=== PATIENT | female | born 2000 | race Caucasian/White ===

== ENCOUNTER 2024-05-29 13:39 | Outpatient (CLI) | payer OTHER, SELFPAY | END 2024-05-29 13:40 | disposition home or self-care (01) | PROVIDERS: Visit Provider Advanced Practice Midwife | DX: Z34.92 Encounter for supervision of normal pregnancy, unspecified, second trimester (principal); O20.9 Hemorrhage in early pregnancy, unspecified; O34.81 Maternal care for other abnormalities of pelvic organs, first trimester; N83.202 Unspecified ovarian cyst, left side; Z3A.10 10 weeks gestation of pregnancy | CPT/HCPCS: 76817; 83021; 86592; 86703; 86704; 86706; 86762; 86787; 86803; 86850; 86900; 86901; 87086; 87340; 87491; 87591 ==

== ENCOUNTER 2024-05-29 15:53 | Outpatient (CLI) | payer OTHER, SELFPAY ==
[2024-05-29 21:09] LABS: Chlamydia DNA Amplified* NOT DETECTED (No Detected); GC DNA Amplified* NOT DETECTED (No Detected)
== END 2024-05-29 15:54 | disposition home or self-care (01) ==
PROVIDERS: Visit Provider Advanced Practice Midwife
DX: Z34.81 Encounter for supervision of other normal pregnancy, first trimester (principal)
CPT/HCPCS: 83020; 83021; 85660; 86592; 86703; 86704; 86706; 86762; 86787; 86803; 86850; 86900; 86901; 87086; 87340; 87491; 87591

== ENCOUNTER 2024-08-01 13:41 | Outpatient (CLI) | payer OTHER, SELFPAY ==
--- NOTE | 2024-08-01 14:00 | CRLHL7_ITS ---
For Patients: As a result of the 21st Century Cures Act, medical imaging exams and procedure reports are released immediately into your electronic medical record. You may view this report before your referring provider. If you have questions, please contact your health care provider. OB ULTRASOUND FLORY by US: 12/24/2024. GA: 19 w, 2 d. INDICATION: screen. TECHNIQUE: Real time taylor scale imaging of the fetus was performed. Evaluate anatomy. Transabdominal imaging performed. position: Vertex. Cervix: Visualized. Technique: Transabdominal. Length of closed cervix: 3.2 cm. Placenta/cord: Posterior. Placenta tip to internal OS: 4.8 cm. Umbilical Cord: 3-vessel cord. Placenta insertion: Not visualized. Amniotic Fluid: 3.7 cm SDP (greater than/equal to: 2- less than 8 cm). SURVEY: Observed Structures. Calvarium/Spine: Cerebellum: 1.9 cm, 19 w 5 d. Cisterna Magna: 5.2 mm. Nuchal Fold: 4.1 mm. Lateral Ventricle: 5.8 mm. CSP: See worksheet comment. Midline Falx: Yes. Choroid Plexus: Yes. Spine: Yes. Abdomen: Stomach: Yes. Abd Cord Insertion: Yes. Urinary Bladder: Yes. Kidneys: (Not indicated on worksheet.) Diaphragm: Yes. Face: Nose/lips: Yes. Orbital view: See worksheet comment. Profile: Yes. Limbs: Upper Extremities: Yes. Lower Extremities: Yes. Hands: Yes. Feet: Yes. Vascular: 4-Chamber Heart: Yes. LVOT: Yes. RVOT: Yes. 3VV: Yes. 3VTV: Yes. BPD: 4.6 cm. 19 w, 5 d, 72 percent. HC: 16.0 cm. 18 w, 6 d, 23 percent. AC: 13.4 cm. 18 w, 6 d, 31 percent. FL: 2.7 cm. 18 w, 1 d, 10 percent. FL/AC ratio: 20.01 percent. HC/AC ratio: 1.20. heart rate: 142 bpm. age by this US: 19 w, 0 d. FLORY by this US: 12/26/2024. EFW: 248 g. Weight: 9 oz. Percentile by FLORY: 14 percent. IMPRESSION: 1. Due to position, the cervical spine was difficult to completely visualize. Also, the head measurements were difficult to obtain. The placental cord insertion, kidneys and facial structures are not well visualized. The remainder of the anatomic survey is normal. Short-term follow-up is recommended. 2. Concordance of clinical and sonographic dating. Miguel Angel García M.D. Diagnostic Radiologist [email or web address] DELFINO/Dictated by: Miguel Angel García MD @ 08/01/2024 8:17:00 PM (Electronically Signed)
== END 2024-08-01 13:42 | disposition home or self-care (01) ==
LOC: US 13:42
PROVIDERS: Visit Provider Advanced Practice Midwife
DX: Z34.92 Encounter for supervision of normal pregnancy, unspecified, second trimester (principal); Z3A.19 19 weeks gestation of pregnancy
CPT/HCPCS: 76805

== ENCOUNTER 2024-08-14 11:01 | Outpatient (CLI) | payer OTHER, SELFPAY ==
--- NOTE | 2024-08-14 11:15 | CRLHL7_ITS ---
For Patients: As a result of the Century Cures Act, medical imaging exams and procedure reports are released immediately into your electronic medical record. You may view this report before your referring provider. If you have questions, please contact your health care provider. OB ULTRASOUND SURVEY FLORY by LMP or FLORY by US: 12/24/2024. GA: 21 w, 1 d. INDICATION: Follow-up missing anatomy views. TECHNIQUE: Real time grayscale imaging of the fetus was performed. Evaluate anatomy. Transabdominal. Cervix: Visualized. Measurement 3.7 cm. position: Vertex. Amniotic Fluid: 5.5 cm SDP. SURVEY: Observed Structures. Calvarium/Spine: CSP: Yes. Spine: Yes. Abdomen: Kidneys: Yes. Face: Nose/lips: Yes. Orbital view: Yes. Profile: Yes. IMPRESSION: 1. Normal cavum septum pellucidum, spine, kidneys, and face. 2. Placental cord insertion 2.1 cm from the placental edge. 3. Small incidental placental lakes. Miguel Angel García M.D. Diagnostic Radiologist [email or web address] DANTE/[email or web address] blanco/Dictated by: Miguel Angel García MD @ 08/14/2024 12:05:00 PM (Electronically Signed)
== END 2024-08-14 11:02 | disposition home or self-care (01) ==
LOC: US 11:01
PROVIDERS: Visit Provider Midwife
DX: O35.8XX0 Maternal care for other (suspected) fetal abnormality and damage, not applicable or unspecified (principal); Z3A.21 21 weeks gestation of pregnancy
CPT/HCPCS: 76816

== ENCOUNTER 2024-09-07 14:40 | Outpatient (CLI) | payer OTHER, SELFPAY | END 2024-09-07 14:41 | disposition home or self-care (01) | LOC: NFLDREF 09-08 01:33 | PROVIDERS: Visit Provider Advanced Practice Midwife | DX: O26.899 Other specified pregnancy related conditions, unspecified trimester (principal); R30.9 Painful micturition, unspecified | CPT/HCPCS: 87086 ==

== ENCOUNTER 2024-10-03 15:25 | Outpatient (CLI) | payer OTHER, SELFPAY | END 2024-10-03 15:26 | disposition home or self-care (01) | PROVIDERS: Visit Provider Midwife | DX: Z34.93 Encounter for supervision of normal pregnancy, unspecified, third trimester (principal); Z67.91 Unspecified blood type, Rh negative; Z3A.28 28 weeks gestation of pregnancy | CPT/HCPCS: 86592; 86850; J2791 ==

== ENCOUNTER 2024-11-28 08:41 | Outpatient (CLI) | payer OTHER, SELFPAY ==
[2024-11-28 11:22] LABS: Bacterial Vaginosis* Negative (Negative); Candida glab/krus NOT DETECTED (No Detected)
== END 2024-11-28 08:42 | disposition home or self-care (01) ==
LOC: NFLDREF 08:42
PROVIDERS: Visit Provider Midwife
DX: R30.0 Dysuria (principal)
CPT/HCPCS: 81513; 87081; 87086; 87481; 87653; 87661

== ENCOUNTER 2024-12-12 10:30 | Outpatient (CLI) | payer OTHER, SELFPAY ==
--- NOTE | 2024-12-12 10:45 | CRLHL7_ITS ---
For Patients: As a result of the Century Cures Act, medical imaging exams and procedure reports are released immediately into your electronic medical record. You may view this report before your referring provider. If you have questions, please contact your health care provider. OB ULTRASOUND LMP: Irregular cycles. FLORY by US: 12/24/2024. GA: 38 w, 2 d. Single. Comparison: 08/14/2024, 08/01/2024, . INDICATION: Growth (size less than dates). TECHNIQUE: Real time grayscale imaging of the fetus was performed. Transabdominal. CERVIX: Not visualized. POSITIONING: Vertex. AMNIOTIC FLUID: 3.8 cm. SDP (N: greater than 2 x 1 cm) BIOPHYSICAL PROFILE: 2: Gross body movements 2: tone 2: Respiratory activity 2: Amniotic fluid SDP (N: greater than 2 x 1 cm) 8/8: Total score PLACENTA: Technique: Transabdominal. PLACENTA POSITION: Posterior. DOPPLER: heart rate: 136 bpm. Umbilical artery: 3.0 S/D. Greater than 34 w = less than 3.5. BIOMETRY: BPD: 8.9 cm. 35 w, 6 d, 14.8 percent. HC: 32.0 cm. 36 w, 0 d, <3 percent. AC: 31.8 cm. 35 w, 5 d, 7.7 percent. FL: 6.8 cm. 34 w, 5 d, <3 percent. FL/AC ratio: 21.2 percent. HC/AC ratio: 1.0. EFW: 2696 g. Weight: 5 lbs, 15 oz. age by this US: 35 w, 4 d. FLORY by this US: 01/12/2025. Percentile by FLORY: 7.6 percent. Comments: New onset IUGR. IMPRESSION: 1. Sonographic gestational age 35 weeks 4 days and sonographic due date 01/12/2025. Sonographic age is 19 days behind the clinical age. 2. Estimated weight 88th percentile. Abdominal circumference 8th percentile. Head circumference and femur length both less than 3rd percentile. 3. Normal biophysical profile score 8/8. 4. Umbilical artery S/D ratio 3.0, within normal limits. Miguel Angel García M.D. Diagnostic Radiologist [email or web address] DSM/jj jj/Dictated by: Miguel Angel García MD @ 12/12/2024 11:58:00 AM (Electronically Signed)
== END 2024-12-12 10:31 | disposition home or self-care (01) ==
LOC: US 10:30
PROVIDERS: Visit Provider Midwife
DX: O36.5930 Maternal care for other known or suspected poor fetal growth, third trimester, not applicable or unspecified (principal); Z3A.38 38 weeks gestation of pregnancy
CPT/HCPCS: 76816; 76819; 76820

== ENCOUNTER 2024-12-19 15:46 | Outpatient (CLI) | payer OTHER, SELFPAY ==
--- NOTE | 2024-12-19 15:45 | CRLHL7_ITS ---
For Patients: As a result of the Cures Act, medical imaging exams and procedure reports are released immediately into your electronic medical record. You may view this report before your referring provider. If you have questions, please contact your health care provider. FLORY by US: 12/24/2024. GA: 39w, 2d. Single. INDICATION: Intrauterine growth restriction. CERVIX: Not visualized. POSITIONING: Vertex. AMNIOTIC FLUID: 4.3 cm SDP. BIOPHYSICAL PROFILE: Total score: 8. Gross body movements: 2. tone: 2. Respiratory activity: 2. Amniotic fluid: 2. (SDP N: Increase 2 x 1 cm) PLACENTA: Technique: Transabdominal. PLACENTA POSITION: Posterior. DOPPLER: heart rate: 134 bpm. Umbilical artery: 2.7 S/D >34w=<3.5 IMPRESSION: 1. Normal biophysical profile 8/8. 2. Two umbilical artery SD ratio 2.7, within normal limits. Miguel Angel García M.D. Diagnostic Radiologist [email or web address] bM/Dictated by: Miguel Angel García MD @ 12/20/2024 3:05:00 PM (Electronically Signed)
== END 2024-12-19 15:47 | disposition home or self-care (01) ==
LOC: US 15:47
PROVIDERS: Visit Provider Midwife
DX: O26.843 Uterine size-date discrepancy, third trimester (principal); Z3A.39 39 weeks gestation of pregnancy
CPT/HCPCS: 76819; 76820

== ENCOUNTER 2024-12-31 10:55 | Inpatient (IN) | payer OTHER, SELFPAY ==
[2024-12-31] VITALS (33 sets, daily range): BP systolic 121–142; BP diastolic 63–81; PULSE 66–111; RESP 18–20; TEMP 36.4–36.8; O2SAT 96–100; BMI 28.5
--- NOTE | 2024-12-31 12:13 | W.PM.LDBA ---
Subjective History of Present Illness Narrative: Patient is being admitted to Labor and Delivery for SROM and contractions. She is a 24 year old at 41.0 weeks gestation. Her full history and physical was dictated by Maurice Rivera CNM on 12/05/24. Please see this for details. She experienced SROM at 1010 and has been beth since 0815. She is breathing with contractions but coping well at this time. We reviewed continuous monitoring for IUGR which she is not happy about but agreeable to at this time. Reviewed the risks of IUGR and why continuous monitoring is required. She had questions about delayed cord clamping and the need for cord blood collection. She desires to wait for clamping until the cord is white. Reviewed that my typically is 5 minutes. Reviewed that if we wait longer and are not able to get enough cord blood a blood draw from baby may be necessary. She is unsure what she will desire but will discuss with her partner and we can make the decision in the moment with taking into account baby and maternal status as well as what he cord looks like at that time. She declines a SVE at this time. We reviewed when to consider a SVE. She continues to leak clear fluid. Specific Issues/Plans : [facility] H&P completed 12/05/2024 by ANDRE Burns # IUGR, AC 8%ile, EFW 7.6% UA doppler weekly x 2w, if stable, UA doppler q 2 w-declined any further after 12/19/24 NST weekly-declined Delivery recommended [id number] 12/12/24, declined again 12/28/24 # A- Rhogam at 28 weeks: 10/03/2024 # Family hx of abnormal bicuspid aortic valve (father and grandma) Consider level 2 US (patient reports she had a normal echo and declined level 2 or echo) #Rubella non-immune Imaginst Trimester (05/29/2024): 1. Sonographic gestational age 10 weeks 1 day and sonographic due date 12/24/2024. 2. Simple left adnexal cyst measures 3.1 x 1.9 x 3.0 cm. Subchorionic hemorrhage is present measuring 5.1 x 1.0 x 2.0 cm. Anatomy US (08/01/2024): 1.Due to position, the cervical spine was difficult to completely visualize. Also, the head measurements were difficult to obtain. The placental cord insertion, kidneys and facial structures are not well visualized. The remainder of the anatomic survey is normal. Short-term follow-up is recommended. 2.Concordance of clinical and sonographic dating.--F/U ordered Follow-up anatomy (08/14/2024): 1. Normal cavum septum pellucidum, spine, kidneys, and face. 2. Placental cord insertion 2.1 cm from the placental edge. 3. Small incidental placental lakes. Growth US- 12/12/24: . Sonographic gestational age 35 weeks 4 days and sonographic due date 01/12/2025. Sonographic age is 19 days behind the clinical age. 2. Estimated weight 8th percentile. Abdominal circumference 8th percentile. Head circumference and femur length both less than 3rd percentile. 3. Normal biophysical profile score 8/8. 4. Umbilical artery S/D ratio 3.0, within normal limits. COVID: Flu: TDAP: Declines 10/17/24 32wk Mental Health: 34wk Hgb: OB - Problem Based A/P Additional Plan (1) SROM (spontaneous rupture of membranes): Status: Acute (2) IUGR (intrauterine growth restriction): Status: Acute (3) Rh negative status during : Status: Acute (4) Pain during labor: Status: Acute Plan ASSESSMENT:? at 41.0 weeks gestation? GBS negative? complicated by: IUGR?(7.6%), Rh negative, rubella non-immune. Labor type: spontaneous, SROM Blood type:?A-, plan for cord blood collection after delivery ?? PLAN:? 1. Candidate for analgesia of choice. Planning unmedicated .? 2. Anticipate ? 3. Expectant management at this time.? 4. Continuous monitoring per policy for IUGR 5. IV placement not indicated at this time. Consider if pateint condition changes. Delivery/Labor/Induction Plan Plan: expectant management OB Result Labs Blood Type: A (-) negative Rubella: nonimmune RPR/VDLR: nonreactive GBS Status: negative HBsAG: negative OB Exam Physical Exam Vital signs: Pulse BP Pulse Ox 78 137/71 98 12/31/24 11:00 12/31/24 11:00 12/31/24 11:38 Narrative: Psychiatric:? Alert and oriented x3? HEENT:? Normocephalic, atraumatic? Neck:? Supple without adenopathy or thyromegaly? Lungs:? Clear to auscultation bilaterally? Heart:? Regular rate and rhythm, no murmur, rub or gallop? Abdomen:? Soft, nontender, and gravid? Extremities:? No edema or erythema? Detailed Labor and Delivery Exam Patient Gravid: yes Contraction Frequency: 2-4 Contraction intensity: Strong/Firm Fetus (Single) Amniotic Membrane Status: SROM Amniotic Membrane Fluid Description: Clear Heart Rate Baseline: 115 Monitor Decelerations: None Inspector Optical Instrument Variability: Moderate (6-25)
--- NOTE | 2024-12-31 17:51 | P.OBPN_ITS ---
Subjective Date Seen: 12/31/24 Narrative: Rhonda has continued to labor with support from her partner and the nurse. She is coping well with contractions but is feeling exhausted. She is feeling pressure and requested a SVE. She was found to be 7-8cm per RN exam. She is feeling pain in her back with most contractions. FHR tracing has shown variable decelerations with some contractions more common in some positions than others. Did attempt side lying release which resulted in a deceleration to the 60's for about 2 minutes and resolved with position changes. We discussed other position changes to help with positioning asymmetrical positions on hands and knees, sitting on the toilet and leaning with her belly hanging. Will continue to provide support and encouragement. Objective Vital Signs: Last Vital Signs Temp 97.8 F 12/31/24 17:06 Pulse 74 12/31/24 17:06 Resp 20 12/31/24 17:06 BP 134/79 12/31/24 17:06 Pulse Ox 98 12/31/24 17:07 Pelvic Exam Dilation (cm): 7-8 Contractions Monitor mode: External Contraction Frequency: 2-4 Contraction pattern: Regular Contraction intensity: Strong/Firm Assessment Assessment: active labor Amniotic Membrane Status: SROM Status: Category ll Heart Rate Baseline: 120 Senior Care Variability: Moderate (6-25) Monitor Accelerations: Present Monitor Decelerations: Variable Plan Plan: ASSESSMENT:? at 41.0 weeks gestation? GBS negative? complicated by: IUGR?(7.6%), Rh negative, rubella non-immune. Labor type: active labor Blood type:?A-, plan for cord blood collection after delivery ?? PLAN:? 1. Candidate for analgesia of choice. Planning unmedicated .? 2. Encourage position changes to help promote physiologic labor and . 3. Expectant management at this time.? 4. Continuous monitoring per policy for IUGR 5. IV placement not indicated at this time. Consider if patient condition changes. 6. Anticipate ?
[2024-12-31] MEDS: LIDOCAINE 1 % PF 30 ML INJECTION (19:53)
[2024-12-31] MEDS: lidocaine HCL 2 % JELLY (TOP) STERILE 6 ML TOPICAL (19:57)
--- NOTE | 2024-12-31 20:45 | W.PM.OBVAGDE ---
OB Procedure Vag Delivery Mother Details Mother Details: The patient is a 24 year-old, 2, Para 0, admitted on 12/31/24 at 41.0 Days gestation. : 2 Para: 1 Weeks Gestation: 41.0 Admission Date: 12/31/24 Additional Details Amniotic Membrane Status: SROM Amniotic Membrane Rupture Date: 12/31/24 Amniotic Membrane Rupture Time: 10:10 Amniotic Membrane Fluid Description: Clear Analgesia/Anesthesia Type: None Waterbirth: No Pitcoin: Yes ([facility] only) Labor Onset: 08:15 Complete: 19:10 Pushin:15 Heart: heart tones during second stage were category 2. Baseline 115. Variable decelerations with most contractions down to the 69-70's. Some slow to recover but better than prior to second stage. Between contractions good variability at baseline. Delivery Details Delivery Date: 12/31/24 Delivery Time: 19:34 Route of delivery: Infant Gender: Female Viability: Alive; Heart Rate Present Position at Delivery: OA Delivery Details: Patient was admitted for SROM and progressed normally. SROM noted at 1010 at home with clear fluid. Patient was complete at 1910 and pushing at 1915. of a viable female at 1934 in hands and knees on the bed. Vertex delivered OA. No nuchal cord or shoulder. Body delivered easily and without incident. Infant passed to mothers abdomen with a vigorous cry. Cord was clamped and cut at > 5 minutes. APGARS were 9 at one minute and 9 at five minutes respectively. Mouth was bulb suctioned. Intact placenta with a 3 vessel cord delivered spontaneously at 1943. Placenta was noted to be small and will be sent to pathology for IUGR. Fundus firm. 2nd degree identified with small labial extensions and repaired in typical fashion. QBL 392mL with measurements in the drape and pads weighted. Bleeding on pad occurred after delivery before she was turned onto her back and the drape was placed. At the beginning of the crowing and before delivery of the baby there was a steady trickle of blood noted lasting from one contraction until the start of the next contraction. EBL from that was 100mL and did not reoccur through the rest of pushing. Suspicious for a small abruption given that bleeding and FHR tracing but no obvious sings of it on the placenta. Sending that placenta to pathology for IUGR already. Mother and baby stable; mother plans to breastfeed. Infant weight pending. 1 Minute Interval Total Score: 9 5 Minute Interval Total Score: 9 Additional Details Shoulder Dystocia: No Placenta Delivery Time: 19:43 Placental Delivery Description: Spontaneous Delivery repair: Vicryl Procedure Done: Global Blood Loss: 392 Laceration: Perineal - 2nd Degree Episiotomy Description: None Blood Loss Measurement Type: QBL Bakri Used: No Sponge/Need Count Correct: Yes Cord Vessel Description: 3 Vessels Event Summary Status: Mother and were stable after delivery. Disposition: floor
[2025-01-01 00:20] VITALS: BP 114/71; PULSE 89; RESP 16; TEMP 37.3; O2SAT 97
[2025-01-01 04:30] VITALS: BP 129/76; PULSE 66; RESP 16; TEMP 37.3; O2SAT 98
[2025-01-01 08:07] LABS: Hemoglobin* 11.7 gm/dL (12.0-16.0)
--- NOTE | 2025-01-01 08:32 | PM.OBPNVD1 ---
OB - PN:Subj Subjective Date Seen: 01/01/25 Narrative: Rhonda is a 24 year old who was admitted for active labor and proceeded to have a vaginal with a 2nd degree laceration that was repaired.The patient feels well.? The pain is well controlled with current medications.? She has no new complaints.? Urinary output is adequate and she is voiding without difficulty.? Has a good appetite, is tolerating a general diet, is passing flatus, and has not had a bowel movement.? Has scant amount of rubra lochia.? She is ambulating well. She is and reports it is ok, but she is not sure if the latch is good.? OB - PN: Obj Exam Physical Exam: Vital signs: Temp Pulse Resp BP Pulse Ox O2 Del Method 99.2 F 66 16 129/76 98 Room Air 01/01/25 04:30 01/01/25 04:30 01/01/25 04:30 01/01/25 04:30 01/01/25 04:30 01/01/25 04:30 Narrative: GENERAL APPEARANCE:? normal affect, alert, no distress MOOD:? appropriate CHEST:? clear to auscultation HEART:? regular rate and rhythm ABDOMEN:? soft, non-tender the uterine fundus is At Umbilicus, Midline and is appropriate for the stage of recovery. PERINEUM:? minimal edema of the perineum, there is a Perineal Laceration,? that is well approximated and without erythema EXTREMITIES:? normal and no edema : OB - PN: Obj Data Labs Labs: Laboratory Results - last 24 hr 01/01/25 07:46 Hgb 11.7 L OB - PN: A/P Delivery Assessment and Plan (1) Rh negative status during : Status: Acute (2) (normal spontaneous vaginal delivery): Status: Acute (3) Second degree perineal laceration: Status: Acute (4) care and examination of lactating mother: Status: Acute Plan Comments: PP day #1 Routine care May see as desired Anticipate discharge 01/02/25
[2025-01-01 08:48] VITALS: BP 123/73; PULSE 74; RESP 16; TEMP 36.7; O2SAT 98
[2025-01-01 12:35] VITALS: BP 126/70; PULSE 93; RESP 16; TEMP 36.6; O2SAT 98
[2025-01-01 16:43] VITALS: BP 115/71; PULSE 79; RESP 16; O2SAT 97
[2025-01-01 19:17] VITALS: BP 125/76; PULSE 69; RESP 16; TEMP 36.4; O2SAT 99
[2025-01-02 01:38] VITALS: BP 120/71; PULSE 73; RESP 16; TEMP 36.7; O2SAT 97
[2025-01-02 08:13] VITALS: BP 127/82; PULSE 66; RESP 18; TEMP 37.1; O2SAT 98
--- NOTE | 2025-01-02 09:34 | PM.OBDSVD1 ---
DS: Providers Provider Date Seen: 01/02/25 Date of admission: 12/31/24 10:55 Primary care physician: Evelyn Mike CNM Admitting Clinician: Evelyn Mike CNM Attending Physician on discharge: Kerry Rivera CNM DS: Diagnosis Discharge Diagnosis (1) care and examination of lactating mother: Status: Acute (2) Rh negative status during : Status: Acute Exam Narrative: Exam Narrative: GENERAL APPEARANCE:? normal affect, alert, no distress MOOD:? appropriate CHEST:? clear to auscultation HEART:? regular rate and rhythm ABDOMEN:? soft, non-tender the uterine fundus is At Umbilicus, Midline and is appropriate for the stage of recovery. PERINEUM:? mild edema of the perineum, there is a Perineal Laceration,?2nd degree, that is healing well. EXTREMITIES:? normal and no edema Const: Vital Signs, click to edit/add: Vital Signs - 24 hr 01/01/25 12:35 01/01/25 16:43 01/01/25 19:17 Temperature 97.9 F 97.5 F L Pulse Rate [Pulse Oximeter] 93 79 69 Respiratory Rate 16 16 16 Blood Pressure [Ri ght Arm] 126/70 115/71 125/76 Pulse Oximetry 98 97 99 Oxygen Delivery Me thod Room Air Room Air Room Air 01/02/25 01:38 01/02/25 08:13 Temperature 98.0 F 98.7 F Pulse Rate [Pulse Oximeter] 73 66 Respiratory Rate 16 18 Blood Pressure [Ri ght Arm] 120/71 127/82 Pulse Oximetry 97 98 Oxygen Delivery Me thod Room Air Room Air Documenting provider has reviewed patient's vital signs: yes OB - DS: Summary Hospital Course Hospital Course: Rhonda is a y.o. G 1 P 1 who was admitted to [facility] for spontaneous onset of labor. ?She had a NVD that was uncomplicated. The patient feels well. ?The pain is well controlled with current medications. ?She has no new complaints. ?She is breast feeding and reports things are going well. the patient has done well.? Vitals have been stable.? She has remained afebrile.? Has a good appetite, is tolerating a general diet. ?She is voiding without difficulty.? She is passing gas and has had a bowel movement.? She is ambulating and denies any dizziness.? Has small amount of rubra lochia. Problems: Denies Discharge home with baby.? Follow up in 2 weeks and 6 weeks.? , may see if needed? Hgb 11.7. ?? For pain control of perineum, breast and pelvic pain, take 600 mg Ibuprofen every 6 hours as needed by mouth or 1000 mg acetaminophen (Tylenol) every 6 hours by mouth as needed. You can alternate these so you are taking something every 3 hours as needed. A heating pad can also be used for your abdomen or breasts. You may also take docusate sodium up to twice daily to soften your stools and help to prevent constipation. You may wean off of it when your stools return to normal.? Peripartum Data Infant delivery method: Vaginal Laceration description: Perineal - 2nd Degree complications: none Gender: Female Infant Discharge Plan: Home Status at Discharge Functional status at discharge: independent ambulation Overall status at discharge: patient is progressing back to baseline Time Spent with Patient Time attestation: Total time spent providing and/or coordinating discharge services: Time spent: Less than 30 minutes Discharge Plan Discharge Disposition: Home, Self-Care Date of Admission: 12/31/24 10:55 Attending Provider on Discharge: Kerry Rivera Primary Care Provider: Evelyn Mike Condition: Stable Anticipated Discharge Date/Time: 01/02/25 09:39 Discharge Medications: New acetaminophen 500 mg Tablet 1,000 mg PO Q6H PRNQty: 0 0RF docusate sodium 100 mg Capsule 100 mg PO DAILY Qty: 0 0RF ibuprofen 600 mg Tablet 600 mg PO Q6H PRNQty: 0 0RF Continued One A Day Women's DHA 28 mg iron- 800 mcg combo pack 1 pkg PO DAILY Patient Comments: Pt taking a different brand; she states she takes 6 capsules daily. Probiotic Pearls Women's 1 billion cell capsule,delayed release(DR/EC) 1 cap PO DAILY magnesium 250 mg tablet 250 mg PO QDAY Discharge Orders: Discharge Order (Routine); Ordered 01/02/25 Ordered By: Kerry Rivera Patient Education: OB Over the Counter Medication Information, OB Vaginal/Breast Feeding Additional Instructions: Discharge instructions were reviewed with the patient including signs and symptoms of infection and home going medications Nothing vaginally for 6 weeks: no tampons or intercourse Off Work or School for 6 weeks 2-week visit: discuss infant feeding concerns, review control options and screen for anxiety/depression. 6-week visit for an annual exam. consultation services are available to all mothers and babies for the first year after delivery.? To make an appointment, please call [phone]. Activity Level: Activity as Tolerated Discharge Diet: Regular Follow Up Appointments: [facility] [Provider Group] Forms: Patient Belongings, MyHealth Info Instructions
== END 2025-01-02 14:15 | disposition home or self-care (01) | DRG 807 ==
LOC: OB OUT 18:48 → OB 18:48
PROVIDERS: Admitting Provider Advanced Practice Midwife; PCP Advanced Practice Midwife; Visit Provider Advanced Practice Midwife
DX: O36.5930 Maternal care for other known or suspected poor fetal growth, third trimester, not applicable or unspecified (principal); Z37.0 Single live birth; O70.1 Second degree perineal laceration during delivery; O76 Abnormality in fetal heart rate and rhythm complicating labor and delivery; O48.0 Post-term pregnancy; Z67.11 Type A blood, Rh negative; O26.893 Other specified pregnancy related conditions, third trimester; Z3A.41 41 weeks gestation of pregnancy
CPT/HCPCS: 36415; 85018; 85461; A9270; J2003; J2590; J2791

== ENCOUNTER 2025-01-23 13:01 | Outpatient (CLI) | payer OTHER, SELFPAY ==
[2025-01-23 19:29] LABS: Bacterial Vaginosis* Negative (Negative); Candida glab/krus NOT DETECTED (No Detected)
== END 2025-01-23 13:02 | disposition home or self-care (01) ==
LOC: NFLDREF 13:01
PROVIDERS: PCP Advanced Practice Midwife; Visit Provider Midwife
DX: N89.8 Other specified noninflammatory disorders of vagina (principal)
CPT/HCPCS: 81513; 87481; 87661

== ENCOUNTER 2025-01-25 12:49 | Outpatient (CLI) | payer OTHER, SELFPAY ==
--- NOTE | 2025-01-25 15:54 | P.LACCB_ITS ---
Consult Note - Mom Date of Visit Date of visit: 01/25/25 Reason for consultation: Assistance Needed Visit Code: Visit Patient's Information Phone number: [phone] : 1 Para: 1 Allergies animal dander Allergy (Mild, Verified 01/23/25 11:26) Congested house dust Allergy (Mild, Verified 01/23/25 11:26) Congested Mother's Medical History: Medical History (Updated 01/05/25 @ 00:00 by Background Daemon) History of prior with IUGR ?Z87.59 - Personal history of other complications of , childbirth and the puerperium (ICD-10) Family history of bicuspid aortic valve ?Z82.79 - Family history of other congenital malformations, deformations and chromosomal abnormalities (ICD-10) PCOS (polycystic ovarian syndrome) ?E28.2 - Polycystic ovarian syndrome (ICD-10) SAB (spontaneous ) ?O03.9 - Complete or unspecified spontaneous without complication (ICD-10) Work Plans: staying home with baby Delivery Information Gestational Age: 41 Gestational Weight For Age: AGA Weight: 3.11 kg Discharge Weight: 2.968 kg Percentage weight loss: 4.56 Baby's Information Baby's Age at Visit: 25 days Baby's Provider or Clinic: [facility] Jaundice: No Past Experience Past Experience: No Current Frequency of Day Feedings: every 2-3 hrs, some cluster feeding Frequency of Night Feedings: every 2-3 hrs Both Breasts: Yes Suck: strong Latch: comfortable, pinchy occas but can fix it Length of Time: 10-15 min, will nurse longer if let her Goals: at least 1 year Pumping Pumping: No (wants to pump but not sure when with current feeding schedule) Supplementing EBM Supplement: No Formula Supplement: No Baby Elimination Number of Wet Diapers a Day: 6-8/day Number of BM a Day: 3-4, yellow and seedy Breast/Nipple Condition Breast Information: Breasts are symmetrical with rounded lower quadrants, intramammary distance is less than 1.5 inches. No erythema. Nipples are supple, everted prior to feeding. Breast Shape: Round Engorgement: No Maternal Nipple Condition - Left: Common Nipple Maternal Nipple Condition - Right: Common Nipple Sore Nipples: No Baby Assessment Skin: Normal Tongue/frenulum: Restricted mid-range (still has moderate restriction with posterior tongue tie noted) and History of frenotomy Palate: Average Lips: Tight labial frenulum (slight) Jaw Alignment: Symmetrical Mucosa: [place], moist Onsite Observation Pre-Feed weight: 3.26 kg (up 5 oz in 6 days) Post-Feed weight: 3.342 kg Milk Transferred (mL): 84 Position: Cross cradle Attachment/latch-on achieved: Easily Suck pattern: Suck burst and normal rest Swallow: Gulping Behavior following feed: Alert, content Pre-Nursing Left Nipple: Within Normal Limits Pre-Nursing Right Nipple: Within Normal Limits Post-Nursing Left Nipple: Within Normal Limits Post-Nursing Right Nipple: Within Normal Limits Assessments/Interventions Assessments/Interventions: Babe latched to mom's RIGHT breast, latched easily and stayed nursing for 13 minutes; mild clicking sounds intermittently during feeding. Not painful for mom Transferred 56 ml of milk Babe then latched to mom's LEFT breast, latched more deeply with guidance for mom and nursed for another 8 minutes. Transferred 28 ml of milk. total milk volume: 84 ml and content after feeding; mom tried to relatch and babe not interested in feeding more. Mom did do some breast compression near end of feeding to help encourage babe to stay latched longer and mom able to see more swallows Education provided: Early feeding cues to maximize timing of latching (discussed feeding cues vs sleep cues; mom wonders if sometimes baby is sleepy but she's trying to feed and then baby doesn't feed well), Asymmetric latch technique for wide/deep latch to increase milk, Transfer for baby and increase comfort for mom, Supply/demand nature of milk supply, Need for frequent stimulation/milk removal, Alternative feeding methods (SNS, cup, finger feeding, bottling) (discussed adding in bottles if want that as an option; also to determine if clicking sounds happen with bottles as well as breast related to tongue tie), Pumping for milk management (discussed pumping one time/day after first morning feeding to build a bit of a freezer supply), Milk collection, storage and Other (discussed referral sources for posterior tongue tie evaluation) Meds Home Medications and Allergies Home Medications ?Medication ?Instructions ?Recorded ?Confirmed ?Type L.acidophilus-L.plantarum-L.rhamnosus 1 cap PO DAILY 0 05/29/24 01/23/25 History 1 billion cell capsule,delay rel (Probiotic Pearls Women's) magnesium 250 mg tablet 250 mg PO QDAY 05/29/2412/28 History vits 75-iron 28 mg-folic 1 pkg PO DAILY 05/2901/23/25 History acid 800 mcg-omega-3 oral combo pack (One A Day Women's DHA) Allergies Allergy/AdvReac Type Severity Reaction Status Date / Time animal dander Allergy Mild Congested Verified 01/23/25 11:26 house dust Allergy Mild Congested Verified 01/23/25 11:26
== END 2025-01-25 12:50 | disposition home or self-care (01) ==
PROVIDERS: PCP Advanced Practice Midwife; Visit Provider Midwife
DX: Z39.1 Encounter for care and examination of lactating mother (principal)
CPT/HCPCS: G0463